=== PATIENT | female | born 1930 | race American Indian/Alaskan Native ===

== ENCOUNTER 2019-05-31 16:02 | Emergency (ER) | payer SELFPAY ==
[2019-05-31 19:36] LABS: Basophils % (Auto) 0.3 % (0.0-1.8); Hematocrit 37.5 % (30.3-42.9); Hemoglobin 12.5 gm/dl (10.1-14.3); Lymphocytes # (Auto) 0.9 K/mm3 (1.2-5.4); Lymphocytes % (Auto) 9.1 % (13.4-35.0); Mean Corpuscular HGB Conc 33 % (30-34); Mean Corpuscular Volume 89 fl (79-97); Monocytes # (Auto) 0.7 K/mm3 (0.0-0.8); Monocytes % (Auto) 7.5 % (0.0-7.3); Platelet Count 360 K/mm3 (140-440); Red Blood Count 4.21 M/mm3 (3.65-5.03); Red Cell Distribution Width 14.8 % (13.2-15.2)
[2019-05-31 19:58] LABS: Calcium 8.6 mg/dL (8.4-10.2)
[2019-05-31 21:36] VITALS: BP 123/98
--- NOTE | 2019-05-31 21:43 | Emergency Department Report ---
ED General Adult HPI - General Chief complaint: Fall Stated complaint: GROUND LEVEL FALL Time Seen by Provider: 05/31/19 17:41 Source: patient Mode of arrival: Stretcher Limitations: No Limitations - History of Present Illness Initial comments: Patient is 88-year-old F [place] female who lives alone who has dementia. Family states that they had not heard from her in approximately 4 days and called paramedics to check on her. Patient was found lying on the floor. Is unknown whether the patient had fallen how long she had been lying on the floor. Patient appears to have urinated on herself. Patient is currently stating that she has no pain but she also states she does not know why she is here in the hospital and on several occasions believe that she was at her own home. Severity scale (0 -10): 0 - Related Data Allergies Allergy/AdvReac Type Severity Reaction Status Date / Time No Known Allergies Allergy Verified 05/31/19 17:28 ED Review of Systems ROS: Stated complaint: GROUND LEVEL FALL Other details as noted in HPI Comment: All other systems reviewed and negative ED Past Medical Hx - Past Medical History Previous Medical History?: Yes Hx Hypertension: Yes Hx Diabetes: Yes - Surgical History Past Surgical History?: No - Social History Smoking Status: Never Smoker Substance Use Type: None ED Physical Exam - General Limitations: No Limitations General appearance: alert, in no apparent distress - Head Head exam: Present: atraumatic, normocephalic - Eye Eye exam: Present: normal appearance, PERRL, EOMI - ENT ENT exam: Present: mucous membranes moist - Neck Neck exam: Present: normal inspection - Respiratory Respiratory exam: Present: normal lung sounds bilaterally. Absent: respiratory distress, wheezes, rales, rhonchi - Cardiovascular Cardiovascular Exam: Present: regular rate, normal rhythm. Absent: systolic murmur, diastolic murmur, rubs, gallop - GI/Abdominal GI/Abdominal exam: Present: soft, normal bowel sounds - Extremities Exam Extremities exam: Present: normal inspection - Back Exam Back exam: Present: normal inspection - Neurological Exam Neurological exam: Present: alert, oriented X3 - Psychiatric Psychiatric exam: Present: normal affect, normal mood - Skin Skin exam: Present: warm, dry, intact, normal color. Absent: rash ED Course Vital Signs 05/31/19 05/31/19 17:29 21:35 Temperature 99 F Pulse Rate 83 83 Respiratory 16 17 Rate Blood Pressure 126/82 Blood Pressure 123/98 [Left] O2 Sat by Pulse 94 97 Oximetry ED Medical Decision Making - Lab Data Result diagrams: 05/31/19 18:45 05/31/19 18:45 Lab Results 05/31/19 05/31/19 Range/Units 18:45 18:45 WBC 9.7 (4.5-11.0) K/mm3 RBC 4.21 (3.65-5.03) M/mm3 Hgb 12.5 (10.1-14.3) gm/dl Hct 37.5 (30.3-42.9) % MCV 89 (79-97) fl MCH 30 (28-32) pg MCHC 33 (30-34) % RDW 14.8 (13.2-15.2) % Plt Count 360 (140-440) K/mm3 Lymph % (Auto) 9.1 L (13.4-35.0) % Faulk % (Auto) 7.5 H (0.0-7.3) % Eos % (Auto) 0.0 (0.0-4.3) % Baso % (Auto) 0.3 (0.0-1.8) % Lymph # 0.9 L (1.2-5.4) K/mm3 Faulk # 0.7 (0.0-0.8) K/mm3 Eos # 0.0 (0.0-0.4) K/mm3 Baso # 0.0 (0.0-0.1) K/mm3 Seg Neutrophils % 83.1 H (40.0-70.0) % Seg Neutrophils # 8.1 H (1.8-7.7) K/mm3 Sodium 141 (137-145) mmol/L Potassium 4.9 (3.6-5.0) mmol/L Chloride 96.6 L (98-107) mmol/L Carbon Dioxide 23 (22-30) mmol/L Anion Gap 26 mmol/L BUN 21 H (7-17) mg/dL Creatinine 1.2 (0.7-1.2) mg/dL Estimated GFR 51 ml/min BUN/Creatinine Ratio 18 % Glucose 129 H (65-100) mg/dL Calcium 8.6 (8.4-10.2) mg/dL Total Creatine Kinase 156 H (30-135) units/L - Medical Decision Making Patient's laboratory studies were unremarkable. Patient according to her daughter who was called is at her baseline however I did feel comfortable releasing her home by herself. Patient likely will need further care at home she is to remain at home alone. Her daughter states that she was unable to pick her up tonight and the patient be picked up tomorrow morning. Critical care attestation.: If time is entered above; I have spent that time in minutes in the direct care of this critically ill patient, excluding procedure time. ED Disposition Clinical Impression: Dementia Qualifiers: Dementia type: unspecified type Dementia behavioral disturbance: without behavioral disturbance Qualified Code(s): F03.90 - Unspecified dementia without behavioral disturbance Disposition: DC-01 TO HOME OR SELFCARE Is pt being admited?: No Does the pt Need Aspirin: No Condition: Stable Referrals: PRIMARY CARE, [Primary Care Provider] - 3-5 Days Time of Disposition: 21:42
== END 2019-06-01 08:44 | disposition home or self-care (01) ==
LOC: ED 16:02
DX: F03.90 Unspecified dementia, unspecified severity, without behavioral disturbance, psychotic disturbance, mood disturbance, and anxiety (principal); I10 Essential (primary) hypertension; E11.9 Type 2 diabetes mellitus without complications
CPT/HCPCS: 36415; 80048; 82550; 85025